=== PATIENT | female | born 1985 | race Caucasian/White ===

== ENCOUNTER 2016-05-13 11:44 | Emergency (ER) | payer OTHER | END 2016-05-13 15:40 | disposition home or self-care (01) | LOC: ER1 11:44 | DX: R51 Headache (principal) | CPT/HCPCS: 84703; 99283 ==

== ENCOUNTER → 2016-06-03 | Outpatient (CLI) | payer OTHER | LOC: KOH-I 14:14 | DX: R51 Headache (principal); J34.89 Other specified disorders of nose and nasal sinuses | CPT/HCPCS: 70450 ==